=== PATIENT | female | born 1975 | race African-American/Black ===

== ENCOUNTER 2023-10-03 14:09 | Inpatient (IN) | payer MEDICAID, OTHER ==
[~2023-10-03] VITALS: Ht 167.6 cm; Wt 90.3 kg
[2023-10-03 15:16] LABS: CALCIUM 8.3 mg/dL (8.5-10.1); CARBON DIOXIDE 23 mmol/L (21-32); CHLORIDE 106 mmol/L (98-107); CREATININE 0.8 mg/dL (0.6-1.3); GLUCOSE 135 mg/dL (74-106); SODIUM SERUM 138 mmol/L (136-145); UREA NITROGEN, BLOOD 11 mg/dL (7-18)
[2023-10-03 15:19] LABS: EOSINOPHILS % (AUTO) 0.5 % (0.0-7.0); MONOCYTES # (AUTO) 0.4 K/uL (0.1-1.30); NEUTROPHILS # (AUTO) 6.5 K/uL (1.8-8.9); WHITE BLOOD COUNT (AUTO) 8.4 K/uL (3.8-11.8)
[2023-10-03 15:20] LABS: BASOPHILS % (AUTO) 0.5 % (0.0-2.0); LYMPHOCYTES # (AUTO) 1.4 K/uL (0.8-4.8); LYMPHOCYTES % (AUTO) 16.8 % (20.5-51.5); MEAN CORPUSCULAR HEMOGLOBIN 13.1 uug (24.7-32.8); MEAN CORPUSCULAR HGB CONC 23 g/dL (32.3-35.6); NEUTROPHILS % (AUTO) 77.2 % (38.5-71.5); PLATELET COUNT (AUTO) 280 K/uL (179-408); RED BLOOD CELL COUNT(AUTO) 2.56 MIL/uL (3.63-4.92); RED CELL DISTRIBUTION WIDTH 24.9 % (12.3-17.7)
[2023-10-03 15:23] LABS: DIFFERENTIAL COMMENT 1
[2023-10-03 15:25] LABS: HEMOGLOBIN 3.4 g/dL (10.9-14.3)
[2023-10-03 15:26] LABS: HEMATOCRIT 14.3 % (31.2-41.9)
[2023-10-03 15:29] LABS: ALANINE AMINOTRANSFERASE 23 U/L (14-59); ALBUMIN 2.7 g/dL (3.4-5.0); ALKALINE PHOSPHATASE 178 U/L (50-136); ASPARTATE AMINOTRANSFERASE 11 U/L (15-37); BILIRUBIN,DIRECT 0.5 mg/dL (0.0-0.2); BILIRUBIN,TOTAL 0.9 mg/dL (0.2-1.0); NT-PRO BNP 1112 pg/mL (0-125); TOTAL PROTEIN, SERUM 6.6 g/dL (6.4-8.2)
[2023-10-03 16:36] LABS: BAND % (MANUAL) 1 % (0-10); LYMPHOCYTES % (MANUAL) 16 % (20-40); MONOCYTES % (MANUAL) 5 % (2-10); NEUTROPHILS % (MANUAL) 78 % (42-75); PLATELET ESTIMATE ADEQUATE
[2023-10-03 16:38] LABS: ANISOCYTOSIS 3+; HYPOCHROMASIA 3+
[2023-10-03 16:39] LABS: OVALOCYTES 1+; TEAR DROP CELLS 1+
[2023-10-03] MEDS ORDERED: MAGNESIUM HYDROXIDE 30 ML LIQUID UDC PO PRN (17:15)
[2023-10-03] MEDS ORDERED: REMEDY ESSENTIAL ZINC PASTE 113 GM TP PRN (17:15)
[2023-10-03] MEDS ORDERED: ONDANSETRON 4 MG/2 ML VIAL IV PRN (17:15)
[2023-10-03 22:00] VITALS: BP 129/63; TEMP 97.3; O2SAT 100
[2023-10-03 23:00] VITALS: BP 125/74; TEMP 97
[2023-10-04] VITALS (15 sets, daily range): BP systolic 115–131; BP diastolic 55–86; TEMP 97–99.1; O2SAT 96–100
[2023-10-04] MEDS ORDERED: FUROSEMIDE 40 MG/4 ML VIAL ONE (00:28)
[2023-10-04] MEDS: FUROSEMIDE 40 MG/4 ML VIAL IV ONE ×2 (00:53→13:00)
[2023-10-04 05:25] LABS: EOSINOPHILS # (AUTO) 0.1 K/uL (0.0-0.7); LYMPHOCYTES # (AUTO) 1.4 K/uL (0.8-4.8); MEAN CORPUSCULAR HEMOGLOBIN 17.3 uug (24.7-32.8); NEUTROPHILS # (AUTO) 6.4 K/uL (1.8-8.9)
[2023-10-04 05:27] LABS: BASOPHILS # (AUTO) 0.1 K/UL (0.0-0.2); BASOPHILS % (AUTO) 0.8 % (0.0-2.0); EOSINOPHILS % (AUTO) 0.6 % (0.0-7.0); LYMPHOCYTES % (AUTO) 17.5 % (20.5-51.5); MEAN CORPUSCULAR HGB CONC 28 g/dL (32.3-35.6); MEAN CORPUSCULAR VOLUME 62.1 fL (75.5-95.3); MONOCYTES # (AUTO) 0.3 K/uL (0.1-1.30); MONOCYTES % (AUTO) 3.8 % (0.0-11.0); NEUTROPHILS % (AUTO) 77.3 % (38.5-71.5); PLATELET COUNT (AUTO) 242 K/uL (179-408); RED BLOOD CELL COUNT(AUTO) 3.03 MIL/uL (3.63-4.92); RED CELL DISTRIBUTION WIDTH 30.8 % (12.3-17.7); WHITE BLOOD COUNT (AUTO) 8.2 K/uL (3.8-11.8)
[2023-10-04 05:31] LABS: CALCIUM 8.2 mg/dL (8.5-10.1); CREATININE 0.7 mg/dL (0.6-1.3); MAGNESIUM 1.9 mg/dL (1.8-2.4); POTASSIUM 3.9 mmol/L (3.5-5.1)
[2023-10-04 05:34] LABS: DIFFERENTIAL COMMENT 1; HEMATOCRIT 18.8 % (31.2-41.9); HEMOGLOBIN 5.2 g/dL (10.9-14.3)
[2023-10-04 06:00] LABS: HYPOCHROMASIA 3+; LYMPHOCYTES % (MANUAL) 21 % (20-40); MONOCYTES % (MANUAL) 3 % (2-10); NEUTROPHILS % (MANUAL) 76 % (42-75); PLATELET ESTIMATE ADEQUATE
[2023-10-04 06:01] LABS: ANISOCYTOSIS 2+
[2023-10-04] MEDS: ACETAMINOPHEN 325 MG TABLET PO PRN (14:13)
[2023-10-04] MEDS: NEUTRA PHOS PACKET PO ONE (16:00)
[2023-10-04 16:59] LABS: *URINE HCG, QUAL NEGATIVE (NEGATIVE)
[2023-10-04 17:33] LABS: BASOPHILS # (AUTO) 0.1 K/UL (0.0-0.2); EOSINOPHILS # (AUTO) 0.1 K/uL (0.0-0.7); EOSINOPHILS % (AUTO) 0.7 % (0.0-7.0)
[2023-10-04 17:34] LABS: BASOPHILS % (AUTO) 0.7 % (0.0-2.0); HEMATOCRIT 25.2 % (31.2-41.9); LYMPHOCYTES # (AUTO) 1.6 K/uL (0.8-4.8); LYMPHOCYTES % (AUTO) 15.9 % (20.5-51.5); MEAN CORPUSCULAR HGB CONC 29 g/dL (32.3-35.6); MEAN CORPUSCULAR VOLUME 64.7 fL (75.5-95.3); MONOCYTES # (AUTO) 0.5 K/uL (0.1-1.30); MONOCYTES % (AUTO) 4.5 % (0.0-11.0); NEUTROPHILS % (AUTO) 78.2 % (38.5-71.5); PLATELET COUNT (AUTO) 251 K/uL (179-408); RED BLOOD CELL COUNT(AUTO) 3.88 MIL/uL (3.63-4.92); RED CELL DISTRIBUTION WIDTH 32.1 % (12.3-17.7); WHITE BLOOD COUNT (AUTO) 10.3 K/uL (3.8-11.8)
[2023-10-04 17:40] LABS: DIFFERENTIAL COMMENT 1; HEMOGLOBIN 7.4 g/dL (10.9-14.3)
[2023-10-04 18:41] LABS: BAND % (MANUAL) 1 % (0-10); LYMPHOCYTES % (MANUAL) 18 % (20-40); MONOCYTES % (MANUAL) 3 % (2-10); NEUTROPHILS % (MANUAL) 78 % (42-75); PLATELET ESTIMATE ADEQUATE
[2023-10-04 18:42] LABS: ANISOCYTOSIS 2+
[2023-10-04 18:43] LABS: HYPOCHROMASIA 3+; OVALOCYTES 1+; TEAR DROP CELLS 1+
[2023-10-05] VITALS (10 sets, daily range): BP systolic 117–133; BP diastolic 60–80; TEMP 97–98.9; O2SAT 96–100
[2023-10-05 05:46] LABS: CALCIUM 8.4 mg/dL (8.5-10.1); CREATININE 0.9 mg/dL (0.6-1.3); PHOSPHOROUS 2.3 mg/dL (2.5-4.9); POTASSIUM 4.1 mmol/L (3.5-5.1)
[2023-10-05 08:04] LABS: BASOPHILS # (AUTO) 0.1 K/UL (0.0-0.2); BASOPHILS % (AUTO) 1.1 % (0.0-2.0); EOSINOPHILS # (AUTO) 0.1 K/uL (0.0-0.7); EOSINOPHILS % (AUTO) 1.3 % (0.0-7.0); HEMATOCRIT 23.8 % (31.2-41.9); LYMPHOCYTES # (AUTO) 1.5 K/uL (0.8-4.8); LYMPHOCYTES % (AUTO) 18.5 % (20.5-51.5); MEAN CORPUSCULAR HEMOGLOBIN 19.5 uug (24.7-32.8); MEAN CORPUSCULAR HGB CONC 30 g/dL (32.3-35.6); MEAN CORPUSCULAR VOLUME 65.6 fL (75.5-95.3); MONOCYTES # (AUTO) 0.4 K/uL (0.1-1.30); NEUTROPHILS # (AUTO) 6.1 K/uL (1.8-8.9); NEUTROPHILS % (AUTO) 74.1 % (38.5-71.5); PLATELET COUNT (AUTO) 247 K/uL (179-408); RED BLOOD CELL COUNT(AUTO) 3.62 MIL/uL (3.63-4.92); RED CELL DISTRIBUTION WIDTH 32.5 % (12.3-17.7); WHITE BLOOD COUNT (AUTO) 8.2 K/uL (3.8-11.8)
[2023-10-05 08:05] LABS: DIFFERENTIAL COMMENT 1; HEMOGLOBIN 7.1 g/dL (10.9-14.3)
[2023-10-05 08:43] LABS: IRON, SERUM 10 ug/dL (50-175)
[2023-10-05 15:40] LABS: LYMPHOCYTES % (MANUAL) 0 % (20-40); NEUTROPHILS % (MANUAL) 0 % (42-75)
[2023-10-05] MEDS: NEUTRA PHOS PACKET PO ONE (16:00)
[2023-10-06 00:34] VITALS: BP 134/64; TEMP 98.7; O2SAT 98
[2023-10-06 04:14] VITALS: BP 127/63; TEMP 97.8; O2SAT 100
[2023-10-06 07:30] VITALS: BP 131/76; TEMP 97.6; O2SAT 98
[2023-10-06 09:23] LABS: BASOPHILS % (AUTO) 0.6 % (0.0-2.0); DIFFERENTIAL COMMENT 0; EOSINOPHILS # (AUTO) 0.1 K/uL (0.0-0.7); EOSINOPHILS % (AUTO) 1.2 % (0.0-7.0); HEMATOCRIT 25.9 % (31.2-41.9); HEMOGLOBIN 7.6 g/dL (10.9-14.3); LYMPHOCYTES # (AUTO) 1.4 K/uL (0.8-4.8); LYMPHOCYTES % (AUTO) 19.6 % (20.5-51.5); MEAN CORPUSCULAR HGB CONC 29 g/dL (32.3-35.6); MEAN CORPUSCULAR VOLUME 67.9 fL (75.5-95.3); MONOCYTES # (AUTO) 0.3 K/uL (0.1-1.30); NEUTROPHILS # (AUTO) 5.2 K/uL (1.8-8.9); NEUTROPHILS % (AUTO) 74.6 % (38.5-71.5); PLATELET COUNT (AUTO) 246 K/uL (179-408); RED BLOOD CELL COUNT(AUTO) 3.82 MIL/uL (3.63-4.92); RED CELL DISTRIBUTION WIDTH 33.3 % (12.3-17.7); WHITE BLOOD COUNT (AUTO) 6.9 K/uL (3.8-11.8)
[2023-10-06] MEDS ORDERED: FERR325T27 PO (09:23)
[2023-10-06 12:19] VITALS: BP 138/62; TEMP 97.5; O2SAT 100
[2023-10-06 14:10] LABS: BAND % (MANUAL) 2 % (0-10); HYPOCHROMASIA 2+; LYMPHOCYTES % (MANUAL) 19 % (20-40); MONOCYTES % (MANUAL) 3 % (2-10); NEUTROPHILS % (MANUAL) 76 % (42-75); PLATELET ESTIMATE ADEQUATE
[2023-10-06 14:11] LABS: ANISOCYTOSIS 3+; TEAR DROP CELLS 1+
== END 2023-10-06 13:15 | disposition home or self-care (01) | DRG 663 ==
LOC: ER 14:09 → CCU 20:05 → TELE3 10-05 18:38 → MEDSURG3 10-06 09:03
PROVIDERS: ADMIT Internal Medicine; ATTEND Internal Medicine
PROC: 30233N1 Transfusion of Nonautologous Red Blood Cells into Peripheral Vein, Percutaneous Approach (ICD-10-PCS; principal; 2023-10-03)
DX: D50.0 Iron deficiency anemia secondary to blood loss (chronic) (principal); J96.01 Acute respiratory failure with hypoxia; I50.31 Acute diastolic (congestive) heart failure; I11.0 Hypertensive heart disease with heart failure; D25.9 Leiomyoma of uterus, unspecified; E87.1 Hypo-osmolality and hyponatremia; N92.0 Excessive and frequent menstruation with regular cycle
CPT/HCPCS: 36415; 70030-TC; 71045; 83550; 83735; 84100; 84484; 84703; 85025; 85730; 86850; 86900; 86901; 86920; 93005; 93307; G0378; J1940; J7040; P9016